=== PATIENT | female | born 1970 | race Caucasian/White ===

== ENCOUNTER 2016-11-30 20:50 | Observation (INO) | payer BC ==
--- NOTE | ~2016-11-30 | HP ---
History And Physical [place] [id number] [facility] [place]. [address] NAME: TJ GRAY : 70 STATUS : ADM Eliceo PAT#: [id number] AGE: 46 ADM/REG DATE : 11/30/16 MR#: [id number] REPORT SERV DATE: 12/01/16 DICTATED BY: AMANDA FAUST DATE: 12/01/16 REPORT STATUS : Draft TRANSCRIBED BY: MODTawana DATE: 12/01/16 DATE OF ADMISSION: 11/30/2016 CHIEF COMPLAINT: Palpitations and chest pain. HISTORY OF PRESENT ILLNESS: This is a very pleasant, 46-year-old, female with no prior coronary artery disease who states a 4-day history of palpitations as well as some chest "tightness." She states she notices her heart "fluttering" more in the evenings while she is lying down. She states the chest "tightness" has been constant over the last couple of days, seems to be worse with a deep inspiration and also when she presses on her chest. She has tried some anti-inflammatory at home with some relief. Her recent medical history is notable for having the flu a couple of weeks ago with cough. The cough has resolved but the patient has been very tired and states more dizziness this week although she does have a history of "vertigo." She also mentioned some increased shortness of breath on exertion this week and when I lie her back to do her exam she states it makes her short of breath. She denies any edema. No cough, fever or chills currently within the last week. She has not had any syncopal episodes. MEDICAL HISTORY: 1. GERD. 2. Irritable bowel syndrome-diarrhea. 3. History of migraines. 4. Anxiety. SURGICAL HISTORY: 1. Right knee meniscus repair in 2001. 2. in 2007. 3. Appendectomy in 1988. 4. Cervical lymph node removed in the following "cat scratch fever.". HOME MEDICATIONS: Zyrtec 10 mg at bedtime, Prozac 20 mg at bedtime, Flonase 2 sprays every morning, Naprosyn 220 mg daily p.r.n. pain, Tri-Sprintec 1 tab every evening, apple cider vinegar 10 mL t.i.d. ALLERGIES: SULFA UNKNOWN REACTION A CHILD AND ERYTHROMYCIN CAUSES NAUSEA. SOCIAL HISTORY: The patient is with 1 child. She works as a dental hygienist. Denies tobacco use. Drinks an alcoholic beverage, maybe once per month. Denies illicit drug use. FAMILY HISTORY: Negative for premature cardiovascular disease among her first-degree relatives. REVIEW OF SYSTEMS: Negative except as indicated above. History And Physical [address] [address] NAME: TJ GRAY : 70 STATUS : ADM Eliceo PAT#: [id number] AGE: 46 ADM/REG DATE : 11/30/16 MR#: [id number] REPORT SERV DATE: 12/01/16 DICTATED BY: AMANDA FAUST DATE: 12/01/16 REPORT STATUS : Draft TRANSCRIBED BY: DAVID DATE: 12/01/16 PHYSICAL EXAMINATION: VITAL SIGNS: Blood pressure 138/70, heart rate 70, temperature 98.3, pulse oximetry 98% room air, BMI 29.6. GENERAL: Well developed, well nourished, in no acute distress. HEENT: Anicteric. Normal EOM. Head normocephalic. PERRLA, no xanthelasma. NECK: Supple. No JVD. Carotids normal without bruits. LUNGS: Clear to auscultation bilaterally anterior and posterior. Respirations even and unlabored. CARDIAC: S1, S2. Regular underlying rhythm with PVCs noted. No murmurs, rubs, or gallops appreciated. PMI not displaced. There is some tenderness to palpation over the left sternum as well as the intercostal space in the left ribcage laterally. ABDOMEN: Normal bowel sounds. Soft and nontender to palpation. No masses or organomegaly. EXTREMITIES: No peripheral edema. DP/PT and radial pulses palpable bilaterally. No clubbing or cyanosis. SKIN: Warm and dry. Normal turgor. No pallor or cyanosis. MUSCULOSKELETAL: Moving all extremities x4. Normal muscle strength. NEURO/PSYCH: Alert and oriented with appropriate affect. LABORATORY DATA: White blood count 6.1, hemoglobin 14.2, hematocrit 41.4. Sodium 140, potassium 4.4, BUN 14, creatinine 0.7, troponin less than 0.02 x2. TSH 1.8 and free T4 was 1.0. Chest x-ray shows no acute cardiopulmonary processes. No pleural fluid. EKGs interpreted by myself indicate normal sinus rhythm with PVCs and poor R-wave progression to the anteroseptal leads. Review of telemetry indicates isolated monomorphic PVCs. No evidence of VT. ASSESSMENT AND PLAN: 1. Palpitations with evidence of premature ventricular contractions on telemetry and EKGs. These appear monomorphic and there have been no grouped premature ventricular contractions evidenced. The patient's electrolytes are normal and she denies history of premature ventricular contractions or palpitations until this week. Because of the patient's dyspnea this week and most recent flu illness, I will plan to check an echocardiogram today. If this appears normal, I will have her discharge today with a Holter monitor for 48 hours and close followup with her primary care physician. I discussed that beta-mary therapy for premature ventricular contractions might be beneficial if she continues to be symptomatic. We will leave this to her primary care physician. 2. Dyspnea with some evidence of orthopnea. Check echocardiogram as above. 3. Chest tightness. The patient was observed overnight in the Chest Pain Observation Unit and is negative for acute coronary syndrome. She has no risk factors for cardiovascular disease and her chest pain is very pleuritic with very atypical. It is pleuritic as well as reproducible. I have recommended NSAIDs for her chest tightness. It could be some costochondritis as well from the patient's recent flu and cough. 4. Recent flu. Chest x-ray appears normal as well as white blood count. [facility] History And Physical [address] [address] NAME: TJ GRAY : 70 STATUS : ADM Eliceo PAT#: [id number] AGE: 46 ADM/REG DATE : 11/30/16 MR#: [id number] REPORT SERV DATE: 12/01/16 DICTATED BY: AMANDA FAUST DATE: 12/01/16 REPORT STATUS : Draft TRANSCRIBED BY: MODTawana DATE: 12/01/16 anda Faust NP / [id number] CC: Emily Deleon, MSN, DIGITAL ASSET COORDINATOR-BC Flex Rushing PA-C
[2016-11-30 19:53] LABS: BASOPHILS 0.7 %; BASOPHILS ABSOLUTE 0.04 10/3/uL (0.0-0.16); EOSINOPHILS 1.8 %; EOSINOPHILS ABSOLUTE 0.11 10/3/uL (0.0-0.53); HEMATOCRIT 41.4 % (36.0-48.0); HEMOGLOBIN 14.2 g/dL (12.0-16.0); IMMATURE GRANULOCYTES 0.2 %; IMMATURE GRANULOCYTES ABSOLUTE 0.01 10/3/uL (0.0-0.11); LYMPHOCYTES 35.1 %; LYMPHOCYTES ABSOLUTE 2.15 10/3/uL (0.67-4.30); MEAN CORPUS HGB CONC 34.3 g/dL (32.0-36.0); MEAN CORPUSCULAR VOLUME 93.2 fL (80-100); MEAN PLATELET VOLUME 11.3 fL (9.2-13.0); MONOCYTES 12.4 %; MONOCYTES ABSOLUTE 0.76 10/3/uL (0.21-1.20); NEUTROPHILS 49.8 %; NEUTROPHILS ABSOLUTE 3.05 10/3/uL (2.02-8.40); PLATELET COUNT 345 10/3/uL (150-400); RBC DISTRIBUTION WIDTH 12.7 % (12.0-16.0); RED CELL COUNT 4.44 10/6/uL (4.0-5.6); WHITE BLOOD CELLS 6.1 10/3/uL (4.5-10.5)
[2016-11-30 19:54] LABS: MANUAL DIFF NO %
[2016-11-30 20:02] LABS: PARTIAL THROMBO TIME 25.3 SEC (22.5-37.2); PROTIME (NOT ORD) 12.8 SEC (12.0-14.5)
[2016-11-30 20:26] LABS: BUN (BLOOD UREA NITROGEN) 14 MG/DL (6-23); CALCIUM, SERUM 8.5 MG/DL (8.5-10.4); CHEST PAIN PROFILE TAT 0 Hrs 12 Mins; CHLORIDE, SERUM 105 MMOL/L (96-112); CO2 (CARBON DIOXIDE) 27 MMOL/L (24-34); CREATININE 0.78 MG/DL (0.55-1.02); FREE T4 1.04 NG/DL (0.76-1.46); GFR AFRICAN AMERICAN 106 ML/MIN (>=60); GFR NON AFRICAN AMERICAN 91 ML/MIN (>=60); GLUCOSE, SERUM 79 MG/DL (60-99); SODIUM, SERUM 140 MMOL/L (135-148); TROPONIN I <0.02 NG/ML (<0.05)
[2016-11-30 20:28] LABS: POTASSIUM, SERUM 4.4 MMOL/L (3.5-5.3)
[2016-11-30 21:12] LABS: D-DIMER QUANTITATIVE < 0.27 ug/mLFEU (< 0.50)
[2016-11-30] MEDS ORDERED: PROZAC PO (21:36)
[2016-11-30] MEDS ORDERED: ZYRTEC ALLGY10 MG PO (21:37)
[2016-11-30] MEDS ORDERED: TRI SPRINTEC PO (21:37)
[2016-11-30] MEDS ORDERED: FLONASE NAS (21:37)
[2016-11-30] MEDS ORDERED: ALEVE220 MG PO (21:38)
[2016-11-30] MEDS ORDERED: APPLE CIDER VINEGAR PO (21:39)
== END 2016-12-01 16:45 | disposition home or self-care (01) ==
LOC: ER 20:50 → CDU1 21:43 → CDU2 22:14
PROVIDERS: Emergency Medicine
DX: I49.3 Ventricular premature depolarization (principal); J40 Bronchitis, not specified as acute or chronic; J11.1 Influenza due to unidentified influenza virus with other respiratory manifestations; K21.9 Gastro-esophageal reflux disease without esophagitis; K58.9 Irritable bowel syndrome, unspecified; F41.9 Anxiety disorder, unspecified; R06.01 Orthopnea; R07.89 Other chest pain; Z86.69 Personal history of other diseases of the nervous system and sense organs; Z98.890 Other specified postprocedural states; Z90.49 Acquired absence of other specified parts of digestive tract; Z79.899 Other long term (current) drug therapy; Z88.2 Allergy status to sulfonamides; Z88.1 Allergy status to other antibiotic agents
CPT/HCPCS: 71010; 80048; 83735; 83880; 84439; 84443; 84484; 85025; 85379; 85610; 85730; 93005; 93017; 93225; 99285; A9270-GY; C8929; G0378; Q9957